=== PATIENT | male | born 1990 | race Asian ===

== ENCOUNTER 2017-03-30 00:34 | Emergency (ER) | payer SELFPAY ==
[~2017-03-30] VITALS: Ht 177.8 cm; Wt 95.0 kg
[2017-03-30 00:49] VITALS: BP 137/99
[2017-03-30] MEDS ORDERED: DEXAMETHASONE SOD PHOS 4 MG/ML 5 ML VIAL IM ONE (01:00)
== END 2017-03-30 01:20 | disposition home or self-care (01) ==
LOC: EMS 00:36
DX: R21 Rash and other nonspecific skin eruption (principal); Z91.010 Allergy to peanuts; Z91.018 Allergy to other foods
CPT/HCPCS: 96372; 99283; J1100